=== PATIENT | male | born 1950 | race Two or more races ===

== ENCOUNTER 2018-10-21 02:48 | Emergency (ER) | payer OTHER, MEDICAID ==
[~2018-10-21] VITALS: Ht 177.8 cm; Wt 79.4 kg
[2018-10-21] MEDS ORDERED: HYDROcodone-ACET 5/325MG TAB PO ONE ×2 (03:15→08:00)
[2018-10-21] MEDS ORDERED: ACETAMINOPHEN 325 MG TAB PO ONE (03:15)
[2018-10-21 08:04] VITALS: BP 124/71
== END 2018-10-21 09:23 | disposition home or self-care (01) ==
LOC: EDBD 02:48 → ER 02:48
DX: R51 Headache (principal); H53.8 Other visual disturbances; I10 Essential (primary) hypertension; Z90.49 Acquired absence of other specified parts of digestive tract
CPT/HCPCS: 70450; 93005